=== PATIENT | male | born 1940 | race Caucasian/White ===

== ENCOUNTER → 2018-03-13 12:30 | Outpatient (CLI) | payer MEDICARE, BC, SELFPAY ==
--- NOTE | 2018-03-13 | DI.RAD.S_ITS ---
PROCEDURE: XR KNEE LT 3V INDICATIONS: LEFT KNEE PAIN TECHNIQUE: 3 views of the knee were acquired. COMPARISON: None. FINDINGS: Bones: No fractures or dislocations. No suspicious bony lesions. There is a moderate degree of osteoarthritis involving all 3 compartments. Soft tissues: No joint effusion. No suspicious soft tissue calcifications. IMPRESSION: Moderate degenerative tricompartmental osteoarthritis without joint effusion or intra-articular loose bodies. Dictated by: Jose Onofre M.D. on 03/13/2018 at 13:16 Approved by: Jose Onofre M.D. on 03/13/2018 at 13:17
== END ==
PROVIDERS: Family Provider Internal Medicine; PCP Internal Medicine; Visit Provider Internal Medicine
DX: M25.562 Pain in left knee (principal); M17.12 Unilateral primary osteoarthritis, left knee
CPT/HCPCS: 73562